=== PATIENT | female | born 1970 | race Caucasian/White ===

== ENCOUNTER 2018-04-27 15:06 | Emergency (ER) | payer SELFPAY ==
[~2018-04-27] VITALS: Ht 157.5 cm; Wt 63.6 kg
[~2018-04-27 15:06] MED LIST: PREN1TAB52 PO
[2018-04-27 16:37] VITALS: BP 133/93
== END 2018-04-27 17:56 | disposition left against medical advice (07) ==
LOC: EMS 15:07
DX: R11.2 Nausea with vomiting, unspecified (principal); R42 Dizziness and giddiness; R53.83 Other fatigue